=== PATIENT | male | born 1975 | race Caucasian/White ===

== ENCOUNTER 2021-10-08 08:13 | Day surgery (SDC) | payer OTHER, SELFPAY ==
[2021-10-08] VITALS (8 sets, daily range): BP systolic 109–154; BP diastolic 74–122; PULSE 68–82; RESP 16–17; TEMP 36.3–36.8; O2SAT 93–97; BMI 45.4
[2021-10-08] MEDS: Lactated Ringers 1,000 ML 15 ML IV (08:30)
--- NOTE | 2021-10-08 09:45 | EGD_PTH ---
PATIENT: DEXTER DUMAS Jr. LOC: EN U#:[id number] AGE/SX: 46/M ROOM: RE10/08/[address]: Dr. Armand Hubbard DO : 1975 BED: DIS: 10/08/2021 SPEC #: [id number] RECD: 10/08/21 11:30 STATUS: PRUDENCE REJustin #: [id number] KARINE: 10/08/21 09:[address]: Armand Hubbard DEPT: SURGICAL PATHOLOGY RECD BY: Chiquis Martel ENTERED: 10/08/21 12:30 SP TYPE: EGD BIOPSY OT DR: Dr. Wayne Jernigan MD Tissues: A - Duodenum, NOS B - Gastric mucous membrane C - Esophagus, NOS D - Ileum, NOS E - COLON BIOPSY F - Descending colon Procedures: Special Stain Group II Special Stain Group I Surgery Specimen Level IV GMS Stain (control) Alcian Blue/PAS (control) HEADER OPERATION: Colonoscopy, EGD ([facility]) PRE-OP DIAGNOSIS: GERD, dumping syndrome TISSUE SUBMITTED: A ? Duodenum biopsy, B ? Gastric antrum biopsy for H. pylori and path, C ? Distal esophagus biopsy, D ? Terminal ileum biopsy, E ? Random colon biopsy, F ? Descending colon polyp biopsy MICROSCOPIC DIAGNOSIS A. Duodenum, biopsy: Fragments of duodenal mucosa, no pathologic diagnosis. B. Gastric antrum, biopsy: Mild gastritis. See microscopic description and comment. C. Distal esophagus, biopsy: Fragments of gastroesophageal mucosa with moderate chronic inflammation and mild acute inflammation. Intestinal metaplasia (goblet cell metaplasia) not identified. See comment. D. Terminal ileum, biopsy: Fragments of small intestinal mucosa, no pathologic diagnosis. See comment. E. Colon, random biopsy: Fragments of colonic mucosa, no pathologic diagnosis. F. Descending colon polyp, biopsy: Tubular adenoma. SJ:vicente 10/09/2021 COMMENT B. The results of immunohistochemistry for Helicobacter pylori will be reported separately ([id number]). C. Alcian blue/PAS stain with matched control is used in the evaluation of the specimen. Special stain for fungi is negative for organisms; matched control is appropriate. D. Prominent lymphoid aggregates are noted. MICROSCOPIC DESCRIPTION Slides are reviewed. B. The specimen shows fragments of gastric mucosa with chronic inflammatory cell infiltrates in the lamina propria consisting of lymphocytes and plasma cells, consistent with mild chronic gastritis. GROSS DESCRIPTION A - Received in fixative is one container labeled with the patient's name and designated duodenum. The specimen consists of two irregular fragments of light sarmiento soft tissue that in aggregate measure 0.6 x 0.3 x 0.1 cm. The specimen is totally submitted in one cassette. B - Received in fixative is one container labeled with the patient's name and designated gastric antrum. The specimen consists of multiple irregular fragments of light sarmiento soft tissue that in aggregate measure 2 x 0.3 x 0.1 cm. The specimen is totally submitted in one cassette. C - Received in fixative is one container labeled with the patient's name and designated distal esophagus. The specimen consists of multiple irregular fragments of light sarmiento soft tissue that in aggregate measure 0.5 x 0.5 x 0.1 cm. The specimen is totally submitted in one cassette. D - Received in fixative is one container labeled with the patient's name and designated biopsy terminal ileum. The specimen consists of multiple irregular fragments of light sarmiento soft tissue that in aggregate measure 0.6 x 0.2 x 0.1 cm. The specimen is totally submitted in one cassette. E - Received in fixative is one container labeled with the patient's name and designated random colon. The specimen consists of multiple irregular fragments of light sarmiento soft tissue that in aggregate measure 1.5 x 0.7 x 0.1 cm. The specimen is totally submitted in one cassette. F - Received in fixative is one container labeled with the patient's name and designated descending colon polyp. The specimen consists of one irregular fragment of light sarmiento soft tissue that measures 0.3 x 0.3 x 0.1 cm. The specimen is totally submitted in one cassette. / SJ:rg 10/08/2021 TC:1 CPT: 18500 x6, 68433, 85367
--- NOTE | 2021-10-08 09:45 | IMM_PTH ---
PATIENT: DEXTER DUMAS Jr. LOC: EN U#:[id number] AGE/SX: 46/M ROOM: RE10/08/[address]: Dr. Armand Hubbard DO : 1975 BED: DIS: 10/08/2021 SPEC #: [id number] RECD: 10/08/21 16:07 STATUS: PRUDENCE REJustin #: [id number] KARINE: 10/08/21 09:[address]: Armand Hubbard DEPT: IMMUNOHISTOCHEMISTRY RECD BY: Marya Mcclain ENTERED: 10/08/21 16:07 SP TYPE: IMMUNO OTHR DR: Dr. Wayne Jernigan MD Tissues: B - Stomach, NOS Procedures: H Pylori (initial) PHYSICIAN & INSTITUTION [place] [id number] SPECIMEN INFORMATION: Tissue Source: B ? Gastric antrum Clinical Info: GERD, dumping syndrome Specimen Number: [id number] CPT code: 24161 METHODOLOGY: Deparaffinized sections of prefer/formalin-fixed tissue or PAP/DQ stained slides are incubated with monoclonal/polyclonal antibodies/oligonucleotide probes. Localization is made via biotin free immunoperoxidase method. Appropriate controls are performed and reacted as expected. Results on target cell population are indicated in the following table: RESULTS: ANTIBODY / CLONE RESULT Block B H Pylori (polyclonal) negative These tests were developed and their performance characteristics determined by [facility]. They may not have been cleared or approved by the U.S. Food and Drug Administration. The FDA has determined that such clearance or approval is not necessary. INTERPRETATION: Gastric antrum, biopsy: Negative for Helicobacter pylori organisms. SJ:vicente 10/09/2021
--- NOTE | 2021-10-08 09:47 | HP.PCM_ITS ---
History and Physical Date of Admission: 10/08/21 HPI Details: DEXTER DUMAS, is a 46 M who presents to the office today for f/u bloating, nausea, abd pain, diarrhea He has decreased metoclopramide 5 mg to twice daily however he then has reflux, bloating, sour stomach. He continues to take colestipol two p.o. twice daily, that helps significantly with diarrhea. Stool is still soft. And he still has BM after eating, but instead of 20 minutes after eating it is now 45 minutes. Not having abdominal pain nausea or vomiting. Dr Hubbard prescribed metoclopramide as well as colestipol for possible increased gastrocolic reflex, possibly from increased bile. Symptoms began yrs ago, was placed on PPI for GERD, other symptoms persisted. He had EGD approx 6-7 yrs ago. He tried multiple icjt-gnw-wheomow remedies such as probiotics, apple cider vinegar and currently takes IBS complete by Claire. After eating he gets abd pressure, hard in epigastric region, bloating, discomfort, sour stomach, heartburn, reflux. Stools are loose, minimally formed, says they're not liquid; BM right after eating. At least 2 BMs per day. Pt has been pleased with the meds. He definitely notes improved symptoms from metoclopramide 5 mg TID. Since running out of it he c/o heartburn, acid reflux, bloating, sour stomach. Denies nausea. No pain. Bowels are better on colestipol 2 grams BID; he has more time between eating and having BM, maybe 45 min instead of 20 min after meals. ROS Const Constitutional: No fatigue, fever(s), headache(s), weight change, sleep problems, abnormal sleep pattern or change in appetite ENT ENT: No headache(s), difficulty swallowing, hoarseness or sore throat Resp Respiratory: No cough, hemoptysis or shortness of breath Cardio Cardiology: No chest pain at rest or generalized swelling Gastro GI: Positive for heartburn; No abdominal pain, belching, change in bowel habits, change in stool character, coffee ground emesis, constipation, cramping, diarrhea, difficulty swallowing, feeling full early, excessive flatus, incontinent of stools, Vomiting blood/hematemesis, Blood in stool, loose stools, Black,tarry stools, nausea/dyspepsia, pain with swallowing or vomiting Musc Musculoskeletal: No joint pain, back pain, joint swelling, numbness or tingling Skin Skin: No itchy eyes or rash Neuro Neurology: No behavioral changes, confusion, headache(s), numbness or tingling Psych Psychiatric: No abnormal sleep pattern, No anxiety, No behavioral changes, No change in appetite, No confusion and No depression Endo Endocrine: No cold intolerance, fatigue, heat intolerance, increased thirst/drinking or weight change Aller/Imm Allergy/Immunologic: No food intolerance or itchy eyes Nathan/Lymp Hematologic/Lymphatic: No easy bleeding, easy bruising or enlarged lymph nodes Exam Const General: cooperative, comfortable, no acute distress, well developed and well groomed Quality Reporting Tobacco Screening ([facility] 138) Smoking Status: Never smoker Assessment and Plan Assessment and Plan (1) GERD (gastroesophageal reflux disease): Status: Acute (2) Dumping syndrome: Status: Acute Plan: Increase metoclopramide back up to TID. Continue colestipol 2 grams BID. Will schedule him for EGD and colonoscopy for ongoing symptoms, unable to taper down metoclopramide. Will eval for Tay's, delayed gastric emptying, colitis, celiac. Plan Details Other Medications: Changed: From: metoclopramide HCl administer 30 minutes before meals 5 mg PO BID 60 tabs 1RF To: metoclopramide HCl administer 30 minutes before meals 5 mg PO TID 90 tabs 2RF I have re-examined the patient. There are no clinical changes since date of exam.
--- NOTE | 2021-10-08 10:33 | OP.EGD_ITS ---
Patient Name: Nathan Farrell Procedure Date: 10/08/2021 9:48 AM Date of : 1975 Age: 46 Procedure: Upper GI endoscopy Indications: Failure to respond to medical treatment Providers: Armand Hubbard DO Medicines: See the Anesthesia note for documentation of the administered medications Patient Profile: This is a 46 year old male. Refer to note in patient chart for documentation of history and physical. Patient has symptoms of chronic epigastric abdominal pain and chronic heartburn. Complications: No immediate complications. Procedure: Pre-Anesthesia Assessment: - Prior to the procedure, a History and Physical was performed, and patient medications and allergies were reviewed. The patient is competent. The risks and benefits of the procedure and the sedation options and risks were discussed with the patient. All questions were answered and informed consent was obtained. Patient identification and proposed procedure were verified by the physician in the pre-procedure area. Mental Status Examination: alert and oriented. Airway Examination: normal oropharyngeal airway and neck mobility. Respiratory Examination: clear to auscultation. CV Examination: normal. Prophylactic Antibiotics: The patient does not require prophylactic antibiotics. Prior Anticoagulants: The patient has taken no previous anticoagulant or antiplatelet agents. After reviewing the risks and benefits, the patient was deemed in satisfactory condition to undergo the procedure. The anesthesia plan was to use moderate sedation / analgesia (conscious sedation). Immediately prior to administration of medications, the patient was re-assessed for adequacy to receive sedatives. The heart rate, respiratory rate, oxygen saturations, blood pressure, adequacy of pulmonary ventilation, and response to care were monitored throughout the procedure. The physical status of the patient was re-assessed after the procedure. After obtaining informed consent, the endoscope was passed under direct vision. Throughout the procedure, the patient's blood pressure, pulse, and oxygen saturations were monitored continuously. The pediatric colonoscope was introduced through the mouth, and advanced to the second part of duodenum. The upper GI endoscopy was accomplished without difficulty. The patient tolerated the procedure well. Moderate Sedation: Moderate (conscious) sedation was administered by the endoscopy nurse and supervised by the endoscopist. The patient's oxygen saturation, heart rate, blood pressure and response to care were monitored. Total physician intraservice time was 15 minutes. Scope In: 10:02:42 AM Scope Out: 10:09:37 AM Total Procedure Duration Time 0 hours 6 minutes 55 seconds Findings: LA Grade A (one or more mucosal breaks less than 5 mm, not extending between tops of 2 mucosal folds) esophagitis with no bleeding was found 35 to 37 cm from the incisors. Biopsies were taken with a cold forceps for histology. Verification of patient identification for the specimen was done. Estimated blood loss was minimal. Localized mild inflammation characterized by erosions and erythema was found in the gastric antrum. Biopsies were taken with a cold forceps for histology. Verification of patient identification for the specimen was done. Estimated blood loss was minimal. There was also some retained food in the stomach. Patchy mildly erythematous mucosa without active bleeding and with no stigmata of bleeding was found in the duodenal bulb. Biopsies were taken with a cold forceps for histology. Verification of patient identification for the specimen was done. Estimated blood loss was minimal. Impression: - LA Grade A reflux esophagitis. Biopsied. - Gastritis. Biopsied. - Erythematous duodenopathy. Biopsied. Recommendation: - Discharge patient to home. - Resume previous diet. - Continue present medications. - Await pathology results. Procedure Code(s): --- Professional --- 08078, Esophagogastroduodenoscopy, flexible, transoral; with biopsy, single or multiple 83001, 59, Moderate sedation services provided by the same physician or other qualified health school child care attendant performing the diagnostic or therapeutic service that the sedation supports, requiring the presence of an independent trained observer to assist in the monitoring of the patient's level of consciousness and physiological status; initial 15 minutes of intraservice time, patient age 5 years or older CPT copyright 2017 [employer]. All rights reserved. The codes documented in this report are preliminary and upon fur blender review may be revised to meet current compliance requirements. Armand Hubbard DO 10/08/2021 10:32:59 AM This report has been signed electronically. Number of Addenda: 1 Note Initiated On: 10/08/2021 9:48 AM Addendum Number: 1 Addendum Date: 04/01/2022 6:45:06 AM MAC was used as sedation for this procedure. Armand Hubbard DO 04/01/2022 6:45:11 AM This report has been signed electronically.
--- NOTE | 2021-10-08 10:33 | OP.CCLET_ITS ---
04/01/2022 Wayne Jernigan Re : Upper GI endoscopy procedure for Nathan Muhammadr Delon This procedure was performed on October. My impressions and recommendations are as follows: Impressions : - LA Grade A reflux esophagitis. Biopsied. - Gastritis. Biopsied. - Erythematous duodenopathy. Biopsied. Recommendations : - Discharge patient to home. - Resume previous diet. - Continue present medications. - Await pathology results. My findings are described in the full procedure note, which is enclosed. If I can be of further assistance, please feel free to contact me at . Sincerely, Armand Hubbard, 10/08/2021 10:32:59 AM This report has been signed electronically.
--- NOTE | 2021-10-08 10:38 | OP.CCLET_ITS ---
04/01/2022 Wayne Jernigan Re : Colonoscopy procedure for Nathan Jenrigan This procedure was performed on October. My impressions and recommendations are as follows: Impressions : - Congested mucosa in the entire examined colon. Biopsied. - Diverticulosis in the sigmoid colon. - One 5 mm polyp in the descending colon, removed with a hot snare. Resected and retrieved. - The examined portion of the ileum was normal. Biopsied. Recommendations : - Discharge patient to home. - Resume previous diet. - Continue present medications. - Await pathology results. - Repeat colonoscopy in 5 years for surveillance. - Return to GI office in 1 week. My findings are described in the full procedure note, which is enclosed. If I can be of further assistance, please feel free to contact me at . Sincerely, Armand Hubbard, 10/08/2021 10:38:01 AM This report has been signed electronically.
--- NOTE | 2021-10-08 10:38 | OP.COLON_ITS ---
Patient Name: Nathan Farrell Procedure Date: 10/08/2021 10:11 AM Date of : 1975 Age: 46 Procedure: Colonoscopy Indications: Generalized abdominal pain, Clinically significant diarrhea of unexplained origin Providers: Armand Hubbard DO Medicines: See the Anesthesia note for documentation of the administered medications Patient Profile: This is a 46 year old male. Refer to note in patient chart for documentation of history and physical. Patient has symptoms of chronic epigastric abdominal pain and chronic heartburn. Last Colonoscopy: none. The patient's first colonoscopy is today. Complications: No immediate complications. Procedure: Pre-Anesthesia Assessment: - Prior to the procedure, a History and Physical was performed, and patient medications and allergies were reviewed. The patient is competent. The risks and benefits of the procedure and the sedation options and risks were discussed with the patient. All questions were answered and informed consent was obtained. Patient identification and proposed procedure were verified by the physician in the pre-procedure area. Mental Status Examination: alert and oriented. Airway Examination: normal oropharyngeal airway and neck mobility. Respiratory Examination: clear to auscultation. CV Examination: normal. Prophylactic Antibiotics: The patient does not require prophylactic antibiotics. Prior Anticoagulants: The patient has taken no previous anticoagulant or antiplatelet agents. After reviewing the risks and benefits, the patient was deemed in satisfactory condition to undergo the procedure. The anesthesia plan was to use moderate sedation / analgesia (conscious sedation). Immediately prior to administration of medications, the patient was re-assessed for adequacy to receive sedatives. The heart rate, respiratory rate, oxygen saturations, blood pressure, adequacy of pulmonary ventilation, and response to care were monitored throughout the procedure. The physical status of the patient was re-assessed after the procedure. After I obtained informed consent, the scope was passed under direct vision. Throughout the procedure, the patient's blood pressure, pulse, and oxygen saturations were monitored continuously. The pediatric colonoscope was introduced through the anus and advanced to the terminal ileum. The colonoscopy was performed without difficulty. The patient tolerated the procedure well. The quality of the bowel preparation was good. Moderate Sedation: Moderate (conscious) sedation was administered by the endoscopy nurse and supervised by the endoscopist. The following parameters were monitored: oxygen saturation, heart rate, blood pressure, and response to care. Total physician intraservice time was 15 minutes. Scope In: 10:13:16 AM Scope Withdrawal Time 0 hours 11 minutes 39 seconds Scope Out: 10:27:08 AM Total Procedure Duration Time 0 hours 13 minutes 52 seconds Findings: The perianal and digital rectal examinations were normal. An area of mildly congested mucosa was found in the entire colon. Estimated blood loss: none. Biopsies were taken with a cold forceps for histology. Verification of patient identification for the specimen was done. Estimated blood loss was minimal. Two small-mouthed diverticula were found in the sigmoid colon. A 5 mm polyp was found in the descending colon. The polyp was sessile. The polyp was removed with a hot snare. Resection and retrieval were complete. Verification of patient identification for the specimen was done. Estimated blood loss was minimal. The terminal ileum appeared normal. Biopsies were taken with a cold forceps for histology. Verification of patient identification for the specimen was done. Estimated blood loss was minimal. Impression: - Congested mucosa in the entire examined colon. Biopsied. - Diverticulosis in the sigmoid colon. - One 5 mm polyp in the descending colon, removed with a hot snare. Resected and retrieved. - The examined portion of the ileum was normal. Biopsied. Recommendation: - Discharge patient to home. - Resume previous diet. - Continue present medications. - Await pathology results. - Repeat colonoscopy in 5 years for surveillance. - Return to GI office in 1 week. Procedure Code(s): --- Professional --- 75525, Colonoscopy, flexible; with removal of tumor(s), polyp(s), or other lesion(s) by snare technique 49204, 59, Colonoscopy, flexible; with biopsy, single or multiple 43809, 59, Moderate sedation services provided by the same physician or other qualified health personal care aide performing the diagnostic or therapeutic service that the sedation supports, requiring the presence of an independent trained observer to assist in the monitoring of the patient's level of consciousness and physiological status; initial 15 minutes of intraservice time, patient age 5 years or older CPT copyright 2017 [employer]. All rights reserved. The codes documented in this report are preliminary and upon housing inspector review may be revised to meet current compliance requirements. Armand Hubbard DO 10/08/2021 10:38:01 AM This report has been signed electronically. Number of Addenda: 1 Note Initiated On: 10/08/2021 10:11 AM Addendum Number: 1 Addendum Date: 04/01/2022 6:45:21 AM MAC was used as sedation for this procedure. Armand Hubbard, 04/01/2022 6:45:28 AM This report has been signed electronically.
== END 2021-10-08 23:59 | disposition home or self-care (01) ==
LOC: EN 08:18 → AC 08:19
PROVIDERS: PCP Family Medicine; Referring Provider Family Medicine; Visit Provider Internal Medicine Gastroenterology
PROC: 0DJD8ZZ Inspection of Lower Intestinal Tract, Via Natural or Artificial Opening Endoscopic (ICD-10-PCS; CPT 45378; principal; 2021-10-08 09:40)
DX: K57.30 Diverticulosis of large intestine without perforation or abscess without bleeding (principal); K63.5 Polyp of colon; K21.00 Gastro-esophageal reflux disease with esophagitis, without bleeding; R19.7 Diarrhea, unspecified; K29.70 Gastritis, unspecified, without bleeding; K21.9 Gastro-esophageal reflux disease without esophagitis; K91.1 Postgastric surgery syndromes
CPT/HCPCS: 45380; 45385; 43239; 87426; 88305; 88312; 88313; 88342; J7120; J2405

== ENCOUNTER → 2023-06-30 | Outpatient (CLI) | payer OTHER, SELFPAY ==
--- NOTE | 2023-06-30 07:44 | CT_ITS ---
STUDY: CT ABDOMEN AND PELVIS WITH CONTRAST REASON FOR EXAM: Male, 48 years old. Rectal pain, ?perirectal abscess RADIATION DOSAGE (If Supplied By Facility): CTDIvol = ( 17.03 ) mGy, DLP = ( 1580.86 ) mGycm TECHNIQUE: Oral and amp; IV Readi-CAT and amp; 100mL Isovue-300 was administered. Transaxial images were obtained from the dome of the diaphragm to the symphysis pubis in the arterial, nephrographic and excretory phases. Multiplanar coronal and sagittal images were reformatted. Individualized Dose Optimization Techniques Were Used For This CT. COMPARISON: No relevant prior comparison study available FINDINGS: The visualized lung bases are unremarkable. The visualized portions of the heart are within normal limits. Hepatic steatosis. There is non-visualization of the gallbladder, which may be secondary to either contraction or a prior cholecystectomy. Normal spleen. Normal pancreas. Normal bilateral adrenal glands. Normal visualized stomach. Normal in caliber small bowel loops. Narrowing of the descending colon likely due to underdistention. No evidence of perirectal abscess. The appendix is visualized and appears normal. Normal abdominal aorta. No retroperitoneal adenopathy. Normal right kidney. Normal left kidney. Normal urinary bladder. Very small umbilical hernia containing fat. Degenerative changes of the thoracic spine. Increased kyphosis of the thoracic spine and increased lordosis of the lumbar spine. CT/Abdomen/Pelvis WITH Contrast IMPRESSION: 1. No evidence of perirectal abscess. 2. No focal acute inflammatory process. 3. Hepatic steatosis. 4. Hiatal hernia containing mostly fat. Electronically Signed: Minh Lepe MD at 16:06 [facility] ,
--- OUTSIDE RECORDS SUMMARY | 2023-06-30 07:45 | XMS RPT_ITS | CCD ---
Author Name Unknown Address [address] [place] [address] Organization [facility] Care Team Providers Care Camera Assembler Name Role Phone ERICK MARKHAM Admitting Unavailable ERICK MARKHAM Primary Care Unavailable ERICK MARKHAM Consulting Unavailable ERICK MARKHAM Attending Unavailable PROVIDER, UNKNOWN Consulting Unavailable PROVIDER, UNKNOWN Consulting Unavailable PROVIDER, UNKNOWN Consulting Unavailable Results Test Name Value Interpretation Reference Range Facil ity Encounters Encounter Date Encounter Type Care Provider Facility Start: 12-29-2022 End: 12-29-2022 ambulatory ERICK [facility] Payers Date Payer Category Payer Unknown [id number] Private Health Insurance [id number] Summary Purpose Family History No Family History Records FoundNo Family History Records Found Advance Directives No Advanced Directives Records FoundNo Advanced Directives Records Found Additional Source Comments (unrecognized sect ion and content) No Status Records FoundNo Status Records Found INFORMATION SOURCE (unrecogn ized section and content) DATE CREATED AUTHOR AUTHOR'S ORGANIZ ATION 01/29/2023 [facility] FOR RECORDS PERTAINING TO PATIENTS WHO ARE OR HAVE BEEN ENROLLED IN A CHEMICAL DEPENDENCY/SUBSTANCEABUSE PROGRAM, SOME INFORMATION MAY BE OMITTED. This clinical summary was aggregated from multiple sources. Caution should be exercised in using it in the provision of clinical care. This summary normalizes information from multiple sources, and as a consequence, information in this document may materially change the coding, format and clinical context of patient data. In addition, data may be omitted in some cases. CLINICAL DECISIONS SHOULD BE BASED ON THE PRIMARY CLINICAL RECORDS. [facility] [employer] [facility] provides no warranty or guarantee of the accuracy or completeness of information in this document.
== END | disposition home or self-care (01) ==
PROVIDERS: PCP Family Medicine; Referring Provider Internal Medicine Gastroenterology; Visit Provider Internal Medicine Gastroenterology
DX: R10.9 Unspecified abdominal pain (principal)
CPT/HCPCS: 74177; Q9967

== ENCOUNTER 2023-11-23 05:18 | Day surgery (SDC) | payer OTHER, SELFPAY ==
[2023-11-23 05:57] VITALS: BP 136/82; PULSE 72; RESP 14; TEMP 36.7; O2SAT 94; BMI 49.4
[2023-11-23] MEDS: Lactated Ringers 1,000 ML 15 ML IV (06:06)
--- NOTE | 2023-11-23 06:30 | COLBX_PTH ---
PATIENT: DEXTER DUMAS Jr. LOC: EN U#:[id number] AGE/SX: 48/M ROOM: RE11/23/[address]: Dr. Armand Hubbard DO : 1975 BED: DIS: 11/23/2023 SPEC #: [id number] RECD: 11/23/23 12:46 STATUS: PRUDENCE HINDS #: [id number] KARINE: 11/23/23 06:[address]: Armand Hubbard DEPT: SURGICAL PATHOLOGY RECD BY: Raffi Mcmillan ENTERED: 11/23/23 13:56 SP TYPE: COLON BX OT DR: Dr. Wayne Jernigan MD Tissues: A - Sigmoid colon biopsy B - Ileum, NOS C - COLON BIOPSY Procedures: Surgery Specimen Level IV HEADER OPERATION: Colonoscopy, hemorrhoid banding, polypectomy, biopsy PRE-OP DIAGNOSIS: Bleeding hemorrhoids TISSUE SUBMITTED: A- Polyp sigmoid biopsy, B- Aggravated lymphoid tissue and terminal ileum, C- Random colonic biopsies MICROSCOPIC DIAGNOSIS A. Sigmoid, polyp, biopsy: Tubular adenoma. B. Terminal ileum, biopsy: No pathologic change. See comment. C. Colon, random biopsy: No pathologic change. JALEN/ 11/24/2023 COMMENT B. Prominent benign appearing lymphoid aggregate are present. MICROSCOPIC DESCRIPTION Slides are reviewed. GROSS DESCRIPTION A. Received in fixative is one container labeled with the patient's name and designated Sigmoid colon polyp. The specimen consists of one irregular fragment of light sarmiento soft tissue that measures 0.7 x 0.5 x 0.2 cm. The specimen is totally submitted in one cassette. B. Received in fixative is one container labeled with the patient's name and designated Aggravated lymphoid tissue terminal ileum. The specimen consists of multiple irregular fragments of light sarmiento soft tissue that in aggregate measure 1.0 x 0.2 x 0.1 cm. The specimen is totally submitted in one cassette. C. Received in fixative is one container labeled with the patient's name and designated Random colon biopsy. The specimen consists of multiple irregular fragments of light sarmiento soft tissue that in aggregate measure 1.0 x 0.8 x 0.1 cm. The specimen is totally submitted in one cassette. AM/mr 11/23/23 TC:5 CPT:34595b1
--- NOTE | 2023-11-23 06:47 | PCM.HP.BLA ---
History and Physical Date of Admission: 11/23/23 48 M who presents to the office today for follow up. *BGI established 12.6.21 with reflux abdominal pain, bloating, nausea and loose stools for the last several years. Initial symptoms of upper abdominal discomfort and reflux with OTC remedies of probiotics and apple cider vinegar attempted. Start reglan and colestipol OV 1.24.22 doing well with use of reglan and colestipol; prescriptions did end and had a return of upper abdominal discomfort. Colestipol 2g BID has improved BM urgency. Refills provided. OV 2.16.22 continues to do well with reglan and colestipol but had return of some symptoms with reglan BID, increase back to TID. ? EGD and colonoscopy .01.22 EGD LA Grade A esophagitis; gastritis; duodenitis. Metaplasia, H.Pylori neg. ? Colonoscopy congested mucosa; diverticulosis; 5mm sessile TA polyp. OV 4. doing well at this time with use of reglan and colestipol. OV 7.15.22 continues PPI, Reglan and colestipol and is doing well. OV 1.13.23 continue reglan, colestipol and PPI OV 11.8.23 for the last few months, on Tuesday or Tuesday he has been having frequent, urgent watery stools lasting for a day. Remaining days of the week BM he was having 3+ attempts with straining and small amount of stools, lasted for four weeks and now is having a BM 1-2/day without difficulty; since improvement of BM pattern he has had improvement of loose stool day frequency. OV 5.10.24 pt reports that he is feeling well overall. States that he has a few loose bowel movements a day and that he has bleeding from his hemorrhoids. Pt states that after eating noodles or bread he feels bloated. Continues with colestipol, reglan, and pantoprazole. ROS Const Constitutional: No fatigue, fever(s) or weight change ENT ENT: No difficulty swallowing Gastro GI: Positive for bloating and excessive flatus; No abdominal pain, belching, change in bowel habits, change in stool character, coffee ground emesis, constipation, cramping, diarrhea, heartburn, difficulty swallowing, feeling full early, incontinent of stools, Vomiting blood/hematemesis, Blood in stool, loose stools, Black,tarry stools, nausea/dyspepsia, pain with swallowing, vomiting or other Musc Musculoskeletal: No joint pain Skin Skin: No yellowing of the eye or itchy eyes Psych Psychiatric: No anxiety and No depression Endo Endocrine: No fatigue or weight change Aller/Imm Allergy/Immunologic: No itchy eyes Nathan/Lymp Hematologic/Lymphatic: No easy bleeding or easy bruising Exam Const General: cooperative and comfortable Nutritional Appearance: obese Orientation: alert, awake and oriented x3 Neuro Other: Grossly intact Assessment and Plan Assessment and Plan (1) Diarrhea: Status: Chronic Qualifiers: Diarrhea type: due to malabsorption Qualified Code(s): K90.9 - Intestinal malabsorption, unspecified; R19.7 - Diarrhea, unspecified Plan: We will continue colestipol at current dosing as he is having 1-2 bowel movements per day. Diverticular regimen. (2) GERD (gastroesophageal reflux disease): Status: Chronic Qualifiers: Esophagitis presence: with esophagitis Esophagitis bleeding: without hemorrhage Qualified Code(s): K21.00 - Gastro-esophageal reflux disease with esophagitis, without bleeding Plan: We will also continue therapy side effects of PPIs for Reglan therapy. I suspect a lot of his symptoms are from metabolic syndrome and a relative neuropathy involving enteric nervous system. (3) Dumping syndrome: Status: Acute Plan: He is doing very well regarding his dumping syndrome as he has changed his diet. He was identified as having some elevated blood sugars possibly secondary to prediabetes or diabetes. He has lost 30 pounds and with in with eliminating simple sugars it is significantly helped his symptoms of dumping. (4) Bleeding hemorrhoid: Status: Acute Plan: We will set him up for a colonoscopy with banding of internal hemorrhoids and possible treatment anal fissure. I have examined the patient and the H&P has been reviewed. There are no clinical changes since date of exam.
[2023-11-23 07:26] VITALS: BP 136/82; BP 147/75; PULSE 85; RESP 16; TEMP 36.4; O2SAT 94
[2023-11-23 07:30] VITALS: BP 136/82; BP 142/71; PULSE 85; RESP 16; O2SAT 95
--- NOTE | 2023-11-23 07:31 | OP.CCLET_ITS ---
11/23/2023 Wayne Jernigan Re : Colonoscopy procedure for Nathan Alfaro Delon This procedure was performed on Thursday, November 23, 2023. My impressions and recommendations are as follows: Impressions : - Hemorrhoids found on perianal exam. - Bleeding external and internal hemorrhoids. Banded. - Congested mucosa in the recto-sigmoid colon, in the sigmoid colon and in the descending colon. Biopsied. - Diverticulosis in the recto-sigmoid colon and in the sigmoid colon. - One 5 mm polyp in the sigmoid colon, removed with a hot snare. Resected and retrieved. - Congested mucosa in the terminal ileum. Biopsied. Recommendations : - Discharge patient to home. - Resume previous diet. - Continue present medications. - Await pathology results. - Repeat colonoscopy in 3 years for surveillance. My findings are described in the full procedure note, which is enclosed. If I can be of further assistance, please feel free to contact me at . Sincerely, Armand Hubbard DO 11/23/2023 7:31:13 AM This report has been signed electronically.
--- NOTE | 2023-11-23 07:31 | OP.COLON_ITS ---
Patient Name: Nathan Farrell Procedure Date: 11/23/2023 6:17 AM Date of : 1975 Age: 48 Procedure: Colonoscopy Indications: Hematochezia Providers: Armand Hubbard DO Referring MD: Wayne Jernigan Medicines: Monitored Anesthesia Care Patient Profile: This is a 48 year old male. Refer to note in patient chart for documentation of history and physical. Last Colonoscopy: 1 year ago. Complications: No immediate complications. Procedure: Pre-Anesthesia Assessment: - Prior to the procedure, a History and Physical was performed, and patient medications and allergies were reviewed. The patient is competent. The risks and benefits of the procedure and the sedation options and risks were discussed with the patient. All questions were answered and informed consent was obtained. Patient identification and proposed procedure were verified by the physician. Mental Status Examination: normal. Prophylactic Antibiotics: The patient does not require prophylactic antibiotics. Prior Anticoagulants: The patient has taken no anticoagulant or antiplatelet agents. After reviewing the risks and benefits, the patient was deemed in satisfactory condition to undergo the procedure. The anesthesia plan was to use monitored anesthesia care (MAC). Immediately prior to administration of medications, the patient was re-assessed for adequacy to receive sedatives. The heart rate, respiratory rate, oxygen saturations, blood pressure, adequacy of pulmonary ventilation, and response to care were monitored throughout the procedure. The physical status of the patient was re-assessed after the procedure. After I obtained informed consent, the scope was passed under direct vision. Throughout the procedure, the patient's blood pressure, pulse, and oxygen saturations were monitored continuously. The Colonoscope was introduced through the anus and advanced to the terminal ileum. The colonoscopy was performed without difficulty. The patient tolerated the procedure well. The quality of the bowel preparation was adequate. The terminal ileum, ileocecal valve, appendiceal orifice, and rectum were photographed. Scope In: 6:53:32 AM Scope Withdrawal Time 0 hours 19 minutes 52 seconds Scope Out: 7:20:31 AM Total Procedure Duration Time 0 hours 26 minutes 59 seconds Findings: Hemorrhoids were found on perianal exam. Bleeding external and internal hemorrhoids were found during retroflexion and during perianal exam. The hemorrhoids were Grade III (internal hemorrhoids that prolapse but require manual reduction). A hemorrhoid was isolated. The CLAY ligator was positioned over the hemorrhoid at the left lateral position. Suction was applied and one rubber band was placed over the hemorrhoid. This was checked to make certain that the muscularis was free of the band. Post-banding digital rectal exam showed band in good position. There were no complications. An area of moderately congested mucosa was found in the recto-sigmoid colon, in the sigmoid colon and in the descending colon. Biopsies were taken with a cold forceps for histology. Biopsies were taken with a cold forceps for histology. Verification of patient identification for the specimen was done. Estimated blood loss was minimal. Multiple small and large-mouthed diverticula were found in the recto-sigmoid colon and sigmoid colon. A 5 mm polyp was found in the sigmoid colon. The polyp was sessile. The polyp was removed with a hot snare. Resection and retrieval were complete. Verification of patient identification for the specimen was done. Estimated blood loss was minimal. A patchy area of the terminal ileum was congested. Biopsies were taken with a cold forceps for histology. Verification of patient identification for the specimen was done. Estimated blood loss was minimal. Impression: - Hemorrhoids found on perianal exam. - Bleeding external and internal hemorrhoids. Banded. - Congested mucosa in the recto-sigmoid colon, in the sigmoid colon and in the descending colon. Biopsied. - Diverticulosis in the recto-sigmoid colon and in the sigmoid colon. - One 5 mm polyp in the sigmoid colon, removed with a hot snare. Resected and retrieved. - Congested mucosa in the terminal ileum. Biopsied. Recommendation: - Discharge patient to home. - Resume previous diet. - Continue present medications. - Await pathology results. - Repeat colonoscopy in 3 years for surveillance. Procedure Code(s): --- Professional --- 91153, Colonoscopy, flexible; with removal of tumor(s), polyp(s), or other lesion(s) by snare technique 60507, Colonoscopy, flexible; with band ligation(s) (eg, hemorrhoids) 21478, 59, Colonoscopy, flexible; with biopsy, single or multiple CPT copyright 2021 [employer]. All rights reserved. The codes documented in this report are preliminary and upon curtain cleaner review may be revised to meet current compliance requirements. Armand Hubbard DO 11/23/2023 7:31:13 AM This report has been signed electronically. Number of Addenda: 0 Note Initiated On: 11/23/2023 6:17 AM
[2023-11-23 07:35] VITALS: BP 133/92; BP 136/82; PULSE 82; RESP 20; O2SAT 94
[2023-11-23 07:40] VITALS: BP 136/82; BP 139/83; PULSE 81; RESP 16; TEMP 36.7; O2SAT 94
[2023-11-23 08:17] VITALS: BP 136/82
--- NOTE | 2023-11-23 08:31 | SUR.PHASEII ---
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 they voice understanding
== END 2023-11-23 08:20 | disposition home or self-care (01) ==
LOC: EN 05:18 → AC 05:19
PROVIDERS: PCP Family Medicine; Referring Provider Family Medicine; Visit Provider Internal Medicine Gastroenterology
PROC: 0DJD8ZZ Inspection of Lower Intestinal Tract, Via Natural or Artificial Opening Endoscopic (ICD-10-PCS; CPT 45378; principal; 2023-11-23 06:25)
DX: R19.7 Diarrhea, unspecified (principal); K63.89 Other specified diseases of intestine; K64.2 Third degree hemorrhoids; K57.30 Diverticulosis of large intestine without perforation or abscess without bleeding; K21.00 Gastro-esophageal reflux disease with esophagitis, without bleeding; D12.5 Benign neoplasm of sigmoid colon; K64.8 Other hemorrhoids; K91.1 Postgastric surgery syndromes; Y84.9 Medical procedure, unspecified as the cause of abnormal reaction of the patient, or of later complication, without mention of misadventure at the time of the procedure
CPT/HCPCS: 45385; 45380; 45398; 88305; J7120; J2405